=== PATIENT | male | born 1995 | race Caucasian/White ===

== ENCOUNTER 2016-11-23 03:38 | Emergency (ER) | payer BC ==
[~2016-11-23] VITALS: Ht 190.5 cm; Wt 92.3 kg
[2016-11-23 03:42] VITALS: BP 130/74; TEMP 98.4
[2016-11-23 04:27] VITALS: PULSE 93
== END 2016-11-23 04:27 | disposition home or self-care (01) ==
LOC: COL.ER 03:38
DX: T16.1XXA Foreign body in right ear, initial encounter (principal)